=== PATIENT | female | born 1995 | race Caucasian/White ===

== ENCOUNTER 2020-07-12 13:51 | Day surgery (SDC) | payer OTHER, SELFPAY ==
[2020-07-12 14:22] VITALS: BMI 34.7
[2020-07-12] MEDS ORDERED: hydrALAZINE 20 MG/ML VIAL SLOW IVP PRN (15:01)
--- NOTE | 2020-07-13 14:16 | PRG ---
DATE OF SERVICE: 07/12/2020 PRIMARY OB: Bouchra Constantino MD CHIEF COMPLAINT: Swollen feet. HISTORY OF PRESENT ILLNESS: The patient is a 25-year-old G1, P0 female with an intrauterine at 31 weeks and 6 days, presenting to Labor and Delivery with swelling feet. She reports that the swelling has gotten bad enough to cause some discomfort and came in for evaluation. She denies any other symptoms. She denies headache, chest pain, shortness of breath, nausea, vomiting, diarrhea, constipation, hip problems, knee problems, muscle weakness. She reports that she has a rash under her breasts. This seems to be resolving and declines evaluation. Denies vaginal bleeding, leakage of fluid, urinary urgency or frequency. PAST MEDICAL HISTORY: Negative. PAST SURGICAL HISTORY: Oral surgery. ALLERGIES: NO KNOWN DRUG ALLERGIES. MEDICATIONS: vitamins. SOCIAL HISTORY: Denies drug, alcohol or tobacco use. REVIEW OF SYSTEMS: Per HPI. OB LABS: Unavailable at time of dictation. PHYSICAL EXAMINATION: VITAL SIGNS: Blood pressure 114/85, heart rate of 92, and saturating 97% on room air. GENERAL: She appears to be in no acute distress. She is alert, oriented, cooperative, and pleasant to interact with. HEAD: Normocephalic and atraumatic. LUNGS: Clear to auscultation bilaterally. HEART: Regular rate and rhythm. ABDOMEN: Gravid, soft, and nontender. EXTREMITIES: Lower extremities are nontender. She has trace to 1+ pitting edema in her feet and trace edema in her pretibial region. There is no lesions or erythema visible. heart tracing shows the fetus with a baseline in the 140s with moderate long-term variability, positive 15 x 15 accelerations, no decelerations. Tocometer is without evidence of contractions. ASSESSMENT AND PLAN: The patient is a 25-year-old G1, P0 female with an intrauterine at 31 weeks and 6 days, presenting with some lower extremity edema. This caused her some discomfort. The patient does work standing on her feet. We have counseled for her to get some support stockings that she can wear while she is at work to assist with the swelling and discomfort, and at home when she is able to rest, to put her feet up to also aid in reducing the swelling. The patient has been given reassurance and has been discharged home. Fetus has a category 1 tracing. Job ID: [id number]
== END 2020-07-12 14:52 | disposition home or self-care (01) ==
LOC: L&D/OP 13:51
PROVIDERS: ATTEND Obstetrics & Gynecology
DX: O12.03 Gestational edema, third trimester (principal); Z3A.31 31 weeks gestation of pregnancy

== ENCOUNTER 2020-08-30 09:54 | Day surgery (SDC) | payer OTHER ==
[2020-08-30 11:06] VITALS: BP 134/91; TEMP 98.9
[2020-08-30 11:11] VITALS: BMI 37.1
[2020-08-30 12:11] LABS: Amnisure Test No Membranes Rupture (No Rupture)
[2020-08-30 12:12] LABS: Amnisure Internal Control QC ACCEPTABLE (ACCEPTABLE)
[2020-08-30] MEDS ORDERED: FLU VACC QS2020-21(6MOS UP)/PF 60 MCG/0.5 ML SYRINGE IM ONE (12:45)
[2020-08-30 12:54] LABS: Creatinine, Urine 94.91 mg/dL (47-110)
--- NOTE | 2020-08-30 14:10 | PRG ---
DATE OF SERVICE: 08/30/2020 PRIMARY OB: Dr. Skelton. CHIEF COMPLAINT: Elevated blood pressure. HISTORY OF PRESENT ILLNESS: The patient is a 25-year-old G1, P0 female with an intrauterine at 38 weeks and 6 days, presenting to Labor and Delivery with complaints of elevated blood pressure at home, which she reports was up to the 150 systolic. On advice of her provider, she has come here for evaluation. The patient denies any headache, fever, cough, chest pain, shortness of breath, nausea, vomiting, diarrhea, constipation, hip problems, knee problems muscle weakness. She denies vaginal bleeding, leakage of fluid, urinary urgency or frequency. PAST MEDICAL HISTORY: Negative. PAST SURGICAL HISTORY: Negative. ALLERGIES: NO KNOWN DRUG ALLERGIES. SOCIAL HISTORY: Denies drug, alcohol, or tobacco use. MEDICATIONS: vitamins. OB LABS: Blood type is O positive. Antibody screen is negative. Hepatitis B surface antigen is negative. HIV is negative in the first and third trimester. GC and chlamydia are negative. She is rubella nonimmune. One-hour Glucola 132. She is GBS negative. HIV and RPR in the third trimester are negative. REVIEW OF SYSTEMS: Per HPI. PHYSICAL EXAMINATION: VITAL SIGNS: Initial blood pressure 134/91. She has had 3 borderline pressures in the first 30 minutes of her stay, 134/90 and 139/95. All of her subsequent blood pressures the following 2 hours have all been 130s/70s to 80s, heart rate has been in the 80s to 90s, respiratory rate 18, temperature 98.9. GENERAL: She appears to be in no acute distress. She is alert, oriented, cooperative, and pleasant to interact with. HEAD: Normocephalic and atraumatic. LUNGS: Clear to auscultation bilaterally. HEART: Regular rate and rhythm. ABDOMEN: Gravid, soft, nontender. EXTREMITIES: Nontender with some edema. DTRs are difficult to elicit. heart tracing shows the fetus with a baseline in the 150s with moderate long-term variability, positive 15 x 15 accelerations, no decelerations. LABORATORY DATA: Urine rrmwzdk-hk-[id number] ratio 0.27. ASSESSMENT AND PLAN: The patient is a 25-year-old, G1, P0 female with an intrauterine at 38 weeks and 6 days, who at this moment has no clear evidence of -induced hypertension or preeclampsia, though the patient does have a couple of elevated pressures on her initial visit and has a urine [id number]-[id number] ratio in the intermediate level. I have spoken with her provider, Dr. Skelton. We will be looking to see when the next elective inductions are available. The patient has an unfavorable at this moment with the cervix of 1 thick and -2, and the patient will have close followup with her. Fetus has a category 1 tracing and reactive NST. Appt scheduled for sun 9am Job ID: [id number] MTDD
== END 2020-08-30 15:18 | disposition home or self-care (01) ==
LOC: L&D/OP 09:54
PROVIDERS: ATTEND Obstetrics & Gynecology
DX: O99.891 Other specified diseases and conditions complicating pregnancy (principal); R03.0 Elevated blood-pressure reading, without diagnosis of hypertension; Z3A.38 38 weeks gestation of pregnancy; Z79.899 Other long term (current) drug therapy
CPT/HCPCS: 82570; 84112; 84156; 99284

== ENCOUNTER 2020-09-01 08:47 | Outpatient (CLI) | payer OTHER ==
[2020-09-02 18:39] LABS: SARS-CoV-2 MS2 Positive; SARS-CoV-2 N Gene Negative; SARS-CoV-2 S Gene Negative; SARS-CoV-2 by NAA Not Detected (NotDetected); SARS-CoV-2 orf1ab Negative
== END 2020-09-01 08:48 | disposition home or self-care (01) ==
LOC: LABBT 08:47
PROVIDERS: ATTEND Obstetrics & Gynecology
DX: Z20.828 Contact with and (suspected) exposure to other viral communicable diseases (principal)
CPT/HCPCS: 87635; U0003

== ENCOUNTER 2020-09-01 11:01 | Inpatient (IN) | payer OTHER ==
[2020-09-01] MEDS ORDERED: HYDROcodone/Acetaminophen 5/325 mg Tablet PO PRN (12:17)
[2020-09-01] MEDS ORDERED: Ondansetron PF 4 MG/2 ML Vial IVP PRN ×2 (12:17→23:24)
[2020-09-01] MEDS ORDERED: Lidocaine 1% (PF) 30 ML VIAL SC PRN (12:17)
[2020-09-01] MEDS ORDERED: NS / Oxytocin 40 units/1000ml 1,000 ML IV PRN (12:17)
[2020-09-01] MEDS ORDERED: Ibuprofen 800 MG TAB PO PRN (12:17)
[2020-09-01] MEDS ORDERED: hydrALAZINE 20 MG/ML VIAL SLOW IVP PRN (12:17)
[2020-09-01] MEDS: Misoprostol 100 MCG TAB VAG SCH ×2 (12:34→15:25)
[2020-09-01 12:40] LABS: Hemoglobin 12.6 g/dL (12.0-16.0); Mean Corpuscular HGB CONC 35.3 g/dL (32.0-36.0); Mean Corpuscular Hemoglobin 30.2 pg (27.0-31.0); Mean Corpuscular Volume 85.5 fL (78.0-98.0); Mean Platelet Volume 8.4 fL (7.4-10.4); Platelet Count 220 thou/uL (130-400); RBC Distribution Width 11.6 % (11.5-14.5); Red Blood Cell (RBC) Count 4.17 mill/uL (4.20-5.40); White Blood Cell (WBC) Count 7.1 thou/uL (4.8-10.8)
[2020-09-01 12:50] VITALS: BMI 37.1
[2020-09-01 13:18] LABS: HBSAg Index 0.16 S/CO (0-0.99); Hep B Surf Ag Non-Reactive S/CO (NonReactive)
[2020-09-01] MEDS ORDERED: Lidocaine 2% MPF 10 ML AMP (For Epidural Use) ONE (13:50)
[2020-09-01 14:14] LABS: Syphilis Antibody Nonreactive (Nonreactive); Syphilis Antibody Index 0.02 S/CO (<1.00 Non-Reactive)
[2020-09-01] MEDS: Butorphanol Tartrate 1 MG/ML VIAL SLOW IVP PRN ×2 (17:52→20:32)
[2020-09-01] MEDS: Lactated Ringer's 1,000 ML IV SCH ×2 (20:26→23:39)
[2020-09-01] MEDS ORDERED: Fentanyl 4 mcg/Bup 0.1% Cadd 100 ML ONE (22:44)
[2020-09-01] MEDS ORDERED: Fentanyl 100 MCG/2 ML VIAL ONE (22:59)
[2020-09-01] MEDS ORDERED: Promethazine HCl 25 MG/ML VIAL IM PRN (23:24)
[2020-09-01] MEDS ORDERED: Lactated Ringer's 500 ML IV PRN (23:24)
[2020-09-01] MEDS ORDERED: diphenhydrAMINE 50 MG/ML VIAL IVP PRN (23:24)
[2020-09-01] MEDS ORDERED: Acetaminophen 325 MG TAB PO PRN (23:24)
[2020-09-01] MEDS ORDERED: Naloxone HCl 0.4 mg/ml Vial IVP PRN ×2 (23:24)
[2020-09-01] MEDS ORDERED: ePHEDrine 50 MG/ML VIAL SLOW IVP PRN (23:24)
[2020-09-01] MEDS ORDERED: Communication Order-Pharmacy FS SCH (23:30)
[2020-09-01] MEDS ORDERED: Fentanyl 4 mcg/Bupivacaine 0.1% Cassette 100 ML EPIDURAL SCH (23:30)
[2020-09-02] MEDS ORDERED: NS w/ Oxytocin 10 units 500 ML IVPB SCH (01:00)
[2020-09-02] MEDS: Lactated Ringer's 1,000 ML IV SCH ×3 (01:41→18:23)
[2020-09-02] MEDS: Misoprostol 100 MCG TAB VAG SCH ×3 (03:33→18:24)
[2020-09-02] MEDS ORDERED: Fentanyl 4 mcg/Bup 0.1% Cadd 100 ML ONE ×2 (06:19→10:58)
[2020-09-02] MEDS ORDERED: Dextrose 5%-Lactated Ringers 1,000 ML IV SCH (09:45)
[2020-09-02] MEDS ORDERED: Bicitra 30 ML UDCUP ONE (13:58)
[2020-09-02] MEDS ORDERED: Azithromycin 500 MG in Sodium Chloride 0.9% 250 ML 250 ML IVPB SCH (14:00)
[2020-09-02] MEDS ORDERED: CEFAZOLIN 2 GM in Premix Bag 1 BAG IVPB SCH (14:00)
[2020-09-02] MEDS ORDERED: Bicitra 30 ML UDCUP PO SCH (14:00)
[2020-09-02] MEDS ORDERED: Azithromycin 500 MG VIAL ONE (14:05)
[2020-09-02] MEDS ORDERED: Dexamethasone 4 mg/ml Vial ONE (14:14)
[2020-09-02] MEDS ORDERED: Ondansetron PF 4 MG/2 ML Vial ONE (14:14)
[2020-09-02] MEDS ORDERED: ePHEDrine 50 MG/ML VIAL ONE (14:14)
[2020-09-02] MEDS ORDERED: Oxytocin 10 UNITS/ML VIAL ONE (14:14)
[2020-09-02] MEDS ORDERED: Lidocaine 2% MPF 10 ML AMP (For Epidural Use) ONE (14:14)
[2020-09-02] MEDS ORDERED: Ketorolac Tromethamine 30 MG/ML VIAL ONE (14:14)
[2020-09-02] MEDS ORDERED: PHENYLEPHRINE-NS 100 MCG/ML 10 ML SYRINGE ONE (14:14)
[2020-09-02] MEDS ORDERED: Metoclopramide HCl 10 MG/2 ML VIAL ONE (14:17)
--- NOTE | 2020-09-02 14:25 | PDOC.EVN ---
Event Note - Event Note Event Note: Patient is pushing x 21/2 hours. Called to assess station and tachycardia. I examined patient. Complete/Complete/ with significant caput making head presentation difficult to assess. Anterior skull is still above syphysis angled at 45 degrees. Unable to check ear position due to asynclitism.... Fht's improved to 160's. Pelvic floor is tight in relation to head and currently station is too high to assist with vaginal delivery. EFW 81/2-9 lbs.... In light of failure to descend after 2 1/2 hours of pushing despite multiple position changes etc, proceed with primary c/s..
[2020-09-02] MEDS ORDERED: Morphine PF 10 MG/10 ML VIAL ONE (14:28)
[2020-09-02] MEDS ORDERED: Meperidine HCl/PF 25 MG/ML VIAL SLOW IVP PRN ×2 (14:39→18:33)
[2020-09-02] MEDS ORDERED: Promethazine HCl 25 MG/ML VIAL IM PRN ×3 (14:39→18:33)
[2020-09-02] MEDS ORDERED: Ondansetron HCl/PF 4 MG/2 ML Vial IVP PRN ×2 (14:39→18:33)
[2020-09-02] MEDS ORDERED: Naloxone HCl 0.4 mg/ml Vial IV PRN ×2 (14:39→18:33)
[2020-09-02] MEDS ORDERED: Promethazine HCl 25 MG SUPP PR PRN ×2 (14:39→18:33)
[2020-09-02] MEDS ORDERED: Ondansetron PF 4 MG/2 ML Vial IVP PRN ×3 (14:39→18:33)
[2020-09-02] MEDS ORDERED: L&D-Morphine 4 MG/ML VIAL SLOW IVP PRN ×2 (14:39→18:33)
[2020-09-02] MEDS ORDERED: HYDROmorphone 2 MG/ML VIAL SLOW IVP PRN ×2 (14:39→18:33)
[2020-09-02] MEDS ORDERED: Naloxone HCl 0.4 mg/ml Vial IVP PRN ×4 (14:39→18:33)
[2020-09-02] MEDS ORDERED: Ketorolac Tromethamine 30 MG/ML VIAL IVP PRN (14:39)
[2020-09-02] MEDS ORDERED: diphenhydrAMINE 50 MG/ML VIAL IVP PRN ×2 (14:39→18:33)
[2020-09-02] MEDS ORDERED: Fentanyl 100 MCG/2 ML VIAL ONE (14:41)
[2020-09-02] MEDS ORDERED: Communication Order-Pharmacy FS SCH ×2 (14:45→18:45)
[2020-09-02 15:06] LABS: Actual Bicarbonate (HCO3v) 22 mEq/L (22-28); Base Excess -4.6 mEq/L (-2.0 to +3.0); pH (Cord, venous) 7.29 (7.32-7.43)
--- NOTE | 2020-09-02 15:09 | PDOC.OPDEL ---
OB Operative/Delivery Note Delivery Dr/Surgeon: Nafisa Assist: Jigar Pre-Delivery Diagnosis: medically indicated induction, other (failure to descend; persistent OP; LGA; gestational htn.) Weeks gestation: 39 Anesthesia: epidural - Findings A Sex: female Weight: 9 lb 5 oz - Additional Findings/Plan Placenta delivered: manual removal Estimated blood loss: 500ml Post delivery plan: routine recovery
[2020-09-02 15:11] LABS: Actual Bicarbonate (HCO3a) 25.1 mEq/L (22-28); Base Excess (BEa) -3.9 mEq/L (-2.0 to +3.0)
[2020-09-02] MEDS ORDERED: Meperidine HCl/PF 25 MG/ML VIAL ONE (16:08)
[2020-09-02] MEDS ORDERED: Zolpidem Tartrate 5 MG TAB PO PRN (17:02)
[2020-09-02] MEDS ORDERED: diphenhydrAMINE 25 MG CAP PO PRN (17:02)
[2020-09-02] MEDS ORDERED: Labetalol HCl 100 MG/20 ML VIAL SLOW IVP PRN (17:02)
[2020-09-02] MEDS ORDERED: Meperidine HCl/PF 25 MG/ML VIAL IM PRN (17:02)
[2020-09-02] MEDS ORDERED: hydrALAZINE 20 MG/ML VIAL SLOW IVP PRN (17:02)
[2020-09-02] MEDS ORDERED: Lanolin Ointment 7 GM TUBE TOP PRN (17:02)
[2020-09-02] MEDS ORDERED: NS / Oxytocin 40 units/1000ml 1,000 ML IV SCH (17:02)
[2020-09-02] MEDS ORDERED: Ketorolac Tromethamine 30 MG/ML VIAL IVP SCH (18:45)
[2020-09-02] MEDS: Ketorolac Tromethamine 30 MG/ML VIAL IVP PRN (21:10)
[2020-09-03] MEDS: Lactated Ringer's 1,000 ML IV SCH ×2 (00:43→11:54)
[2020-09-03] MEDS: Ketorolac Tromethamine 30 MG/ML VIAL IVP PRN (05:12)
[2020-09-03] MEDS: Simethicone Chewable 80 MG TAB PO PRN ×2 (05:13→21:51)
--- NOTE | 2020-09-03 06:51 | PDOC.PP ---
Post Progress Note Post Day #: 1 PO intake tolerated: yes Flatus: yes Ambulation: yes Vital Signs (12 hours) Temp Pulse Resp BP Pulse Ox 09/03/20 06:20 20 09/03/20 04:30 97.5 F L 81 20 125/72 93 L 09/03/20 02:04 18 09/03/20 00:00 98.6 F 77 18 125/77 95 09/02/20 22:00 18 09/02/20 19:38 97.7 F 74 16 131/74 96 Weight Weight 230 lb - Physical Examination General: NAD Cardiovascular: no m/r/g, RRR Respiratory: clear to auscultation bilaterally, non-labored breathing Abdominal: + bowel sounds, lochia, no distention, appropriately TTP Extremities: negative homans (B) Skin: CS incision dry & intact Neurological: no gross focal deficits Psychiatric: A&Ox3, normal affect (pod 1 doing well. hct pending this am. good uop) Result Diagrams: 09/01/20 12:27 Additional Labs: Post Labs Hep Bs Antigen Non-Reactive S/CO (NonReactive) 09/01/20 12:27 Blood Type O POSITIVE 09/01/20 13:40
[2020-09-03] MEDS: NIFEdipine XL 30 MG TAB PO SCH (08:19)
[2020-09-03] MEDS: Prenatal Vitamin 1 TAB PO SCH (08:19)
[2020-09-03] MEDS: HYDROcodone/Acetaminophen 5/325 mg Tablet PO PRN ×4 (13:12→21:50)
[2020-09-03 13:41] LABS: Hemoglobin 11.6 g/dL (12.0-16.0); Mean Corpuscular HGB CONC 33.6 g/dL (32.0-36.0); Mean Corpuscular Hemoglobin 29.6 pg (27.0-31.0); Mean Corpuscular Volume 88.1 fL (78.0-98.0); Platelet Count 223 thou/uL (130-400); RBC Distribution Width 11.6 % (11.5-14.5); Red Blood Cell (RBC) Count 3.93 mill/uL (4.20-5.40)
--- NOTE | 2020-09-03 14:24 | OP ---
DATE OF PROCEDURE: 09/02/2020 PREOPERATIVE DIAGNOSIS: 1. A 25-year-old white female, G1, P0, at 39 to 40 weeks gestation with mild gestational hypertension. 2. Status post labor induction with failure to descend in second stage complete/complete +1. 3. Persistent OP presentation. 4. Large for gestational age infant. POSTOPERATIVE DIAGNOSES: 1. A 25-year-old white female, G1, P0, at 39 to 40 weeks gestation with mild gestational hypertension. 2. Status post labor induction with failure to descend in second stage complete/complete +1. 3. Persistent OP presentation. 4. Large for gestational age . PROCEDURE PERFORMED: Primary low transverse section without extension. ANALYTICAL MANAGER SURGEON: Andres Kimball MD, OB Hospitalist Service. ANESTHESIA: Epidural. ESTIMATED BLOOD LOSS: 500 mL. ANTIBIOTICS: 2 g Ancef and Zithromax per protocol. FINDINGS: 1. Female infant, right occiput posterior presentation with significant caput noted. 2. weight 9 pounds 5 ounces. Apgars 8 and 9. 3. Normal-appearing uterus, tubes, and ovaries and no uterine extensions noted. DISPOSITION: Stable. DESCRIPTION OF PROCEDURE: The patient previously had received informed consent in regard to surgery. She was taken back to the operative suite after decision to proceed with primary section was made. She was prepped and draped in usual sterile fashion and epidural was maximized for operative delivery. At this time, a Pfannenstiel incision was made in the lower abdomen and was carried down to the fascia. Fascia was nicked in the midline. The fascial incision was extended bilaterally using curved Ortiz scissors. The rectus fascia was dissected both superiorly and inferiorly off the rectus muscle bellies. The rectus muscle bellies were divided in the midline and the peritoneal cavity was entered. The peritoneal incision was extended, and in usual fashion, an Jose Manuel O retractor was placed. At this time, a 2 cm hysterotomy incision was made above the vesicouterine peritoneal fold. It was extended via finger fractionation. The baby's head was then carefully delivered out of the pelvis in the vertex presentation very methodically to prohibit any uterine extensions. The baby's position was noted to be ROP. The mouth and nares of the infant were bulb suctioned on the abdomen, and the cord was doubly clamped and cut and the baby was handed to the Pediatric Team in attendance. The usual cord blood ABG along with cord blood sample was taken. The uterus was externalized and placenta was manually extracted. Uterus was curetted of any remaining placental fragments with a dry laparotomy sponge. The hysterotomy incision was inspected noted to be without any extensions. It was then closed in running locking fashion with #1 Monocryl suture securing hemostasis. The uterus had been replaced back in the abdomen during the closure. Pelvis was irrigated and again hysterotomy line was inspected and hemostasis was assured. The Jose Manuel O retractor was removed. The rectus muscle bellies were inspected and noted to be hemostatic prior to fascial closure. The fascia was closed with 0 PDS suture x2 in running continuous fashion. Subcutaneous tissue was irrigated and noted to be hemostatic prior to approximation with a running 3-0 plain gut suture. The skin was then closed with therese. The surgery was terminated. There were no anesthetic or surgical complications. Job ID: [id number]
[2020-09-03] MEDS ORDERED: Adacel (T-DAP) 0.5 ML SYRINGE IM ONE (17:02)
[2020-09-03] MEDS: Ibuprofen 800 MG TAB PO SCH (19:53)
[2020-09-04] MEDS: HYDROcodone/Acetaminophen 5/325 mg Tablet PO PRN ×2 (02:02→11:26)
--- NOTE | 2020-09-04 05:04 | PDOC.PP ---
Post Progress Note Post Day #: POD2 Subjective: Resting, no c/o. PO intake tolerated: yes Flatus: no Ambulation: yes Vital Signs (12 hours) Temp Pulse Resp BP Pulse Ox 09/03/20 20:00 98 09/03/20 19:48 98.9 F 110 H 16 129/79 96 09/03/20 17:22 105 H 09/03/20 17:11 98.6 F 122 H 20 131/79 97 Weight Weight 104.326 kg - Physical Examination General: NAD Respiratory: non-labored breathing Abdominal: no distention Skin: CS incision dry & intact Neurological: no gross focal deficits Psychiatric: normal affect Result Diagrams: 09/03/20 13:21 Additional Labs: Post Labs Hep Bs Antigen Non-Reactive S/CO (NonReactive) 09/01/20 12:27 Blood Type O POSITIVE 09/01/20 13:40 - Assessment/Plan Doing well. Advance diet. Routine postop care.
[2020-09-04] MEDS: Ibuprofen 800 MG TAB PO SCH ×2 (06:34→13:47)
[2020-09-04] MEDS: Lactated Ringer's 1,000 ML IV SCH (10:06)
[2020-09-04] MEDS: NIFEdipine XL 30 MG TAB PO SCH (10:08)
[2020-09-04] MEDS: Prenatal Vitamin 1 TAB PO SCH (10:08)
[2020-09-04 13:35] VITALS: BP 137/85; TEMP 98.3
--- NOTE | 2020-09-04 13:40 | PDOC.BPN ---
- Brief Progress Note Encounter Date: 09/04/20 Encounter Time: 13:35 Contacted by the patient's RN: Baby has been cleared for DC to home. Mother would like to be DC as well this PM. I have reviewed the vitals. OK for DC to home. Dyana out for her on Sunday or Sunday next week. Case discussed with Sapna, the patient's RN.
== END 2020-09-04 15:35 | disposition home or self-care (01) | DRG 788 ==
LOC: L&D 11:01 → 3SW 09-02 17:27
PROVIDERS: ADMIT Obstetrics & Gynecology; ATTEND Obstetrics & Gynecology
PROC: 10D00Z1 Extraction of Products of Conception, Low, Open Approach (ICD-10-PCS; principal; 2020-09-02)
DX: O13.4 Gestational [pregnancy-induced] hypertension without significant proteinuria, complicating childbirth (principal); O32.4XX0 Maternal care for high head at term, not applicable or unspecified; O64.0XX0 Obstructed labor due to incomplete rotation of fetal head, not applicable or unspecified; O36.63X0 Maternal care for excessive fetal growth, third trimester, not applicable or unspecified; Z3A.39 39 weeks gestation of pregnancy; Z37.0 Single live birth; Z79.899 Other long term (current) drug therapy; Z20.828 Contact with and (suspected) exposure to other viral communicable diseases
CPT/HCPCS: 36415; 51702; 82570; 82805; 84112; 84156; 85027; 86780; 86850; 86900; 86901; 87340; 87635; 99284; J0595; J1100; J1885; J2001; J2175; J2270; J2405; J2590; J2765; J3010; J3490; U0003